=== PATIENT | female | born 1985 | race Caucasian/White ===

== ENCOUNTER 2021-05-27 00:15 | Emergency (ER) | payer SELFPAY ==
[2021-05-27] MEDS ORDERED: BUSPIRONE HCL10 MG PO (02:55)
[2021-05-27] MEDS ORDERED: RISPERDAL1 MG PO (02:55)
[2021-05-27] MEDS ORDERED: WELLBUTRIN SR150 MG PO (02:55)
== END 2021-05-27 03:10 | disposition home or self-care (01) ==
LOC: ER1 00:15
DX: Z76.0 Encounter for issue of repeat prescription (principal); F17.210 Nicotine dependence, cigarettes, uncomplicated; Z90.49 Acquired absence of other specified parts of digestive tract; Z88.2 Allergy status to sulfonamides
CPT/HCPCS: 99281